=== PATIENT | male | born 2000 | race African-American/Black ===

== ENCOUNTER 2020-12-11 22:03 | Emergency (ER) | payer OTHER ==
[~2020-12-11] VITALS: Ht 185.4 cm; Wt 99.8 kg
[2020-12-11 22:52] LABS: URINE BILIRUBIN NEGATIVE (Negative); URINE BLOOD NEGATIVE (Negative); URINE CLARITY CLEAR; URINE COLOR YELLOW; URINE GLUCOSE-RANDOM* NEGATIVE (Negative); URINE KETONES TRACE (Negative); URINE LEUKOCYTES-REFLEX NEGATIVE (Negative); URINE NITRITE-REFLEX NEGATIVE (Negative); URINE PROTEIN (DIPSTICK) NEGATIVE (Negative); URINE SPECIFIC GRAVITY 1.025 (1.005-1.035)
[2020-12-11 22:55] LABS: ABSOLUTE NEUTROPHILS 2.1 thou/uL (1.4-8.2); BASOPHILS 0.7 % (0.0-2.0); EOSINOPHILS 0.6 % (0.0-3.0); HEMATOCRIT 43.7 % (42.0-52.0); HEMOGLOBIN 14.4 gm/dL (14.0-18.0); LYMPHOCYTES 25.2 % (24.0-44.0); MCH 27.1 pg (26.0-34.0); MONOCYTES 13.9 % (1.0-8.0); PLATELET COUNT 261 thou/uL (150-400); POLYS 59.6 % (36.0-66.0); RBC 5.33 mil/uL (4.50-6.00); RDW 14.3 % (10.5-14.5); WBC 3.6 thou/uL (4.0-11.0)
[2020-12-11 22:58] LABS: CALCIUM 8.9 mg/dL (8.5-10.1); CREATININE 1.5 mg/dL (0.7-1.3); POTASSIUM 3.4 mmol/L (3.5-5.1)
[2020-12-11 23:04] LABS: ALBUMIN 3.6 g/dL (3.4-5.0); TOTAL BILIRUBIN 0.4 mg/dL (0.2-1.0); TOTAL PROTEIN 7.1 g/dL (6.4-8.2)
[2020-12-12] MEDS ORDERED: LEVOFLOXACIN750 MG PO (01:16)
[2020-12-12] MEDS ORDERED: FLAGYL500 M1 PO (01:16)
[2020-12-12] MEDS ORDERED: LEVSIN0.125 MG PO (01:17)
[2020-12-12] MEDS ORDERED: ZOFRAN ODT4 MG PO (01:17)
[2020-12-12] MEDS ORDERED: NEXIUM40 MG PO (01:17)
[2020-12-12 01:30] VITALS: BP 101/54
== END 2020-12-12 01:31 | disposition home or self-care (01) ==
LOC: ER 22:03
PROVIDERS: Emergency Medicine
DX: K52.9 Noninfective gastroenteritis and colitis, unspecified (principal); K92.1 Melena